=== PATIENT | female | born 1935 | race Caucasian/White ===

== ENCOUNTER 2018-09-20 05:10 | Inpatient (IN) ==
[2018-09-13 15:52] LABS: Appearance,Urine CLEAR; Bacteria,Urine 0 /hpf (0); Bilirubin,Urine NEG (NEG); Color,Urine YELLOW; Glucose,Urine (UA) NEGATIVE (NEG); Leukocyte Esterase,Urine 250 /uL (NEG); Mucus,Urine FEW /hpf (0); Protein,Urine NEG (NEG); Specific Gravity,Urine 1.027 (1.000-1.035); Urine Blood NEG mg/dL (<0.03); Urine RBC 2 /hpf (0-1); Urine Squamous Epithelial Cell 2 /hpf (0-4); Urine Transitional Epi Cells 1 /hpf (0-2); Urine WBC 28 /hpf (0-4); Urobilinogen,Urine NEG (NEG)
[2018-09-13 17:01] LABS: Blood Urea Nitrogen 16 mg/dl (8-23)
[2018-09-13 17:22] LABS: Basophils # (Auto) 0 K/mcL (0.0-0.3); Basophils % (Auto) 0.6 % (0.0-2.0); Eosinophils # (Auto) 0.4 K/mcL (0.0-0.7); Eosinophils % (Auto) 4.3 % (0.0-7.0); Granulocytes % (Auto) 62.4 % (38.0-78.0); Lymphocytes # (Auto) 1.9 K/mcL (1.5-4.8); Lymphocytes % (Auto) 22.6 % (15.5-49.0); Mean Corpuscular HGB Conc 33.3 g/dL (31.0-36.0); Mean Corpuscular Hemoglobin 31.6 pg (26.0-34.0); Monocytes # (Auto) 0.8 K/mcL (0.1-0.9); Monocytes % (Auto) 10.1 % (1.0-12.0); Platelet Count 154 K/mcL (140-440); RBC 4.69 M/mcL (4.00-5.20); Red Cell Distribution Width 13.1 % (11.5-14.5)
[2018-09-20] MEDS ORDERED: ACETAMINOPHEN 500 MG TABLET PO SCH (07:00)
[2018-09-20] MEDS ORDERED: CELECOXIB 200 MG CAPSULE PO SCH (07:00)
[2018-09-20] MEDS ORDERED: PREGABALIN 75 MG CAPSULE PO SCH (07:00)
[2018-09-20] MEDS ORDERED: 0.9 % SODIUM CHLORIDE 9 ML, KETOROLAC 30 MG, ROPIVACAINE HCL/PF 49.5 ML, EPINEPHrine 0.... IJ SCH (07:00)
[2018-09-20] MEDS ORDERED: CLINDAMYCIN 900 MG in DEXTROSE 5% IN WATER 50 ML IV SCH (07:00)
[2018-09-20] MEDS ORDERED: GENTAMICIN SULFATE 800 MG/20 ML VIAL IR ONE (07:06)
[2018-09-20] MEDS ORDERED: GLYCOPYRROLATE 0.2 MG/ML VIAL IV ONE (07:45)
[2018-09-20] MEDS ORDERED: LIDOCAINE HCL/PF 100 MG/5 ML SYRINGE IV ONE (07:45)
[2018-09-20] MEDS ORDERED: PHENYLEPHRINE 10 MG/ML VIAL IV ONE (07:45)
[2018-09-20] MEDS ORDERED: DEXAMETHASONE 10 MG/ML VIAL IV ONE (07:45)
[2018-09-20] MEDS ORDERED: MIDAZOLAM 2 MG/2 ML VIAL IV ONE (07:45)
[2018-09-20] MEDS ORDERED: fentaNYL 100 MCG/2 ML VIAL IV ONE (07:45)
[2018-09-20] MEDS ORDERED: ONDANSETRON 4 MG/2 ML VIAL IV ONE (07:45)
[2018-09-20] MEDS ORDERED: PROPOFOL 200 MG/20 ML VIAL IV ONE (07:45)
[2018-09-20] MEDS ORDERED: TRANEXAMIC ACID 1,000 MG/10 ML VIAL IV ONE (07:45)
[2018-09-20] MEDS ORDERED: KETAMINE 100 MG/ML ML IV ONE (07:45)
[2018-09-20] MEDS ORDERED: METHOCARBAMOL 1,000 MG/10 ML VIAL IV PRN (08:00)
[2018-09-20] MEDS ORDERED: IPRATROPIUM/ALBUTEROL 3 ML AMPUL.NEB NEB PRN (08:00)
[2018-09-20] MEDS ORDERED: BENZOCAINE/MENTHOL 1 LOZENGE PO PRN (08:00)
[2018-09-20] MEDS ORDERED: NALOXONE HCL 0.4 MG/ML VIAL IV PRN (08:00)
[2018-09-20] MEDS ORDERED: LACTATED RINGERS 250 ML IV PRN (08:00)
[2018-09-20] MEDS ORDERED: fentaNYL 100 MCG/2 ML VIAL IV PRN (08:00)
[2018-09-20] MEDS ORDERED: MEPERIDINE 25 MG/ML SYRINGE IV PRN (08:00)
[2018-09-20] MEDS ORDERED: FLUMAZENIL 0.1 MG/ML ML IV PRN (08:00)
[2018-09-20] MEDS ORDERED: LACTATED RINGERS 1,000 ML IV SCH (08:00)
[2018-09-20] MEDS ORDERED: ACETAMINOPHEN 1,000 MG/100 ML BOTTLE IV ONE (08:00)
[2018-09-20] MEDS ORDERED: ONDANSETRON 4 MG/2 ML VIAL IV PRN ×2 (08:00→09:06)
[2018-09-20] MEDS ORDERED: HYDROcodone/APAP 10/325MG TABLET PO PRN (09:06)
[2018-09-20] MEDS ORDERED: KETOROLAC 15 MG/ML VIAL IV PRN (09:06)
[2018-09-20] MEDS ORDERED: POLYETHYLENE GLYCOL 3350 17 GM PACKET PO PRN (09:06)
[2018-09-20] MEDS ORDERED: BISACODYL 10 MG SUPP.RECT PR PRN (09:06)
[2018-09-20] MEDS ORDERED: FLEETS ADULT ENEMA PR PRN (09:06)
[2018-09-20] MEDS ORDERED: TRANEXAMIC ACID 1,000 MG/10 ML VIAL IV SCH (09:06)
[2018-09-20] MEDS ORDERED: HYDROmorphone 2 MG/ML VIAL IV PRN (09:06)
[2018-09-20] MEDS ORDERED: MAGNESIUM HYDROXIDE 30 ML ORAL.SUSP PO PRN (09:06)
[2018-09-20] MEDS ORDERED: ceFAZolin 1 GM VIAL IV SCH (09:15)
--- NOTE | 2018-09-20 10:15 | XRay Report ---
CLINICAL INFORMATION: Post-Op Total Hip COMPARISON: None. FINDINGS: Left total hip prostheses is in near-anatomic alignment. No osseous abnormalities. Periarticular soft tissue swelling over the surgical site as expected. IMPRESSION: Negative Interpreted and Authenticated by: Baron Robles 09/20/18
--- NOTE | 2018-09-20 10:36 | XRay Report ---
CLINICAL INFORMATION: left total hip COMPARISON: None. FINDINGS: Intraoperative film shows prostatic femoral neck template in anatomic position. Acetabular prosthesis also anatomic position. No osseous abnormality. IMPRESSION: Intraoperative films - as described Interpreted and Authenticated by: Baron Robles 09/20/18
--- NOTE | 2018-09-20 11:33 | Operative Note ---
DATE OF OPERATION: 09/20/2018 PREOPERATIVE DIAGNOSIS: Left hip degenerative arthritis. POSTOPERATIVE DIAGNOSIS: Left hip degenerative arthritis. PROCEDURE: Left total hip arthroplasty. SURGEON: Mandeep Art MD STAFF DEVELOPER: Clay De Jesus PA-C ANESTHESIA: General LMA anesthesia. ESTIMATED BLOOD LOSS: About 150 mL IMPLANTS: A size 6 cemented stem with a +2.5 ceramic head, a 52 mm cup with a 36 mm compression screw. COMPLICATIONS: None. DESCRIPTION OF PROCEDURE: The patient was brought in to the operating room and put to sleep with general LMA anesthesia in a supine position, turned into a right lateral position and then the hip was sterilely prepped and draped. We then made a superior approach to the hip through the [place] after confirming the operative site, and preoperative antibiotics and tranexamic acid had been given. We then made the incision, dissected down through the fatty layer, identified the fascial layer which was incised through the muscle fibers. We then dislocated the hip and released the capsule. We made our neck cut at 30 mm below the center of hip rotation with the reciprocating saw, subluxed the hip anteriorly and then reamed up to the size of 52, implanted a 52 cup in 20 degrees of anteversion, 40 degrees of inclination as well as placing 1 screw 36 mm long. Once this was done, we then placed a non-hooded liner, which was tapped into place highly cross-linked polyethylene. We broached up on the femur. Because the bone quality was cemented into place a size 6 stem. The size 6 stem was positioned after a template had been performed. We trialed the size 6 stem with a neutral neck length. This seemed to match equal leg lengths, noting that the stem had not been fully seated. We then cemented into place the stem after preparing the bony surface and injecting cement. This was compressed with a 6 stem, 11 mm distal centralizer. We then tapped this into place down to the bony calcar region, placed a 2.5 neck length because of the shortening from the original template. We irrigated thoroughly and removed any excess cement. Once the bone was hardened we placed this 2.5 plus neck length on the ceramic 36 mm head. This was reduced and was very stable up to 90 degrees in both direction. We irrigated thoroughly and closed the fascial layer with #1 Stratafix. We closed the capsular layer with #1 Ethibond and skin was closed with #1 Stratafix and adhesive closure. The patient tolerated this well without complication. RB[facility]:esperanza Job ID: [id number] Doc ID: [id number] Mandeep Art MD
[2018-09-20] MEDS: 0.45 % SODIUM CHLORIDE 1,000 ML IV SCH ×2 (11:40→20:08)
[2018-09-20] MEDS: BENZOCAINE/MENTHOL 1 LOZENGE PO PRN ×2 (11:40→22:51)
[2018-09-20] MEDS ORDERED: oxyCODONE HCL 5 MG TABLET PO PRN (12:23)
[2018-09-20] MEDS: 0.9 % SODIUM CHLORIDE 10 ML SYRINGE IV SCH ×2 (13:17→20:15)
[2018-09-20] MEDS: CLINDAMYCIN 900 MG in DEXTROSE 5% IN WATER 50 ML IV SCH ×2 (15:49→22:46)
[2018-09-20] MEDS: DOCUSATE SODIUM 100 MG CAPSULE PO SCH (20:13)
[2018-09-20] MEDS: ASPIRIN 325 MG ENTERIC COATED TABLET PO SCH (20:13)
[2018-09-20] MEDS: ACETAMINOPHEN 325 MG TABLET PO PRN (20:59)
[2018-09-20] MEDS ORDERED: TEMAZEPAM 15 MG CAPSULE PO PRN (21:00)
[2018-09-20] MEDS ORDERED: SENNOSIDES 1 TABLET PO SCH (21:00)
[2018-09-21] MEDS: BENZOCAINE/MENTHOL 1 LOZENGE PO PRN (02:34)
[2018-09-21] MEDS: 0.9 % SODIUM CHLORIDE 10 ML SYRINGE IV SCH (05:47)
--- NOTE | 2018-09-21 07:37 | Orthopedic Progress Note ---
Subjective Patient information: Note initiated : 09/21/18 at 7:35 am Service Date, if different from initiated Date: [] Patient: Beronica Carrasco 83 y/o F admitted on 09/20/18 for Left Total Hip Arthroplasty. Chief Complaint: [Pt is stable this morning on post operative day 1 without any significant concerns or complaints. Patients vital signs have remained stable. Patients dressing is dry and is grossly intact from a neurovascular and motor standpoint. Patients 10 point ROS is otherwise negative. ] Objective Vital signs: Vital Signs Temp Pulse Resp BP Pulse Ox 09/21/18 06:55 96.8 F L 61 14 102/55 93 09/21/18 05:46 96 09/21/18 03:10 97.3 F 65 22 111/56 94 09/21/18 03:09 94 09/21/18 02:35 93 09/21/18 00:00 98.1 F 67 22 103/49 93 09/20/18 22:54 93 09/20/18 21:00 91 09/20/18 20:00 98.6 F 76 24 H 107/58 92 09/20/18 19:49 95 09/20/18 17:35 93 09/20/18 15:53 98.3 F 18 116/64 92 09/20/18 15:44 92 09/20/18 14:24 97.4 F 68 20 117/59 95 09/20/18 13:20 90 104/46 94 09/20/18 12:37 90/48 92 09/20/18 11:43 95 09/20/18 11:41 95/48 92 09/20/18 11:25 94/34 94 09/20/18 10:02 98.4 F 84 20 94/48 97 09/20/18 09:47 77 13 85/52 100 09/20/18 09:32 98.3 F 73 15 94/48 97 09/20/18 09:27 73 12 104/52 97 09/20/18 09:22 75 13 110/60 98 09/20/18 09:17 97.6 F 84 14 99/57 95 Intake and Output 09/20/18 09/21/18 09/21/18 21:59 05:59 13:59 Intake Total 1323 / 1323 1806 / 1806 Output Total 1225 / 1225 1150 / 1150 Balance 98 / 98 656 / 656 Intake: IV 903 / 903 1056 / 1056 Sodium Chloride 0.45% 1,000 ml 847 / 847 1000 / 1000 @ 100 mls/hr IV .Q10H [facility] Rx#: [id number] Cleocin 900 mg In Dextrose 5% 56 / 56 56 / 56 in Water 50 ml @ 100 mls/hr IV Q8H [facility] Rx#:[id number] Oral 420 / 420 750 / 750 Output: Void Amount 1225 / 1225 1150 / 1150 Other: Urine Appearance Clear Clear Urine Color Pale Pale Urine Odor Normal Normal Weight 178 lb 8 oz Intake & Output: Intake & Output 09/20/18 09/21/18 09/21/18 21:59 05:59 13:59 Intake Total 1323 / 1323 1806 / 1806 Output Total 1225 / 1225 1150 / 1150 Balance 98 / 98 656 / 656 Weight 178 lb 8 oz Intake: IV 903 / 903 1056 / 1056 Sodium Chloride 0.45% 1,000 ml 847 / 847 1000 / 1000 @ 100 mls/hr IV .Q10H [facility] Rx#: [id number] Cleocin 900 mg In Dextrose 5% 56 / 56 56 / 56 in Water 50 ml @ 100 mls/hr IV Q8H [facility] Rx#:[id number] Oral 420 / 420 750 / 750 Output: Void Amount 1225 / 1225 1150 / 1150 Other: Urine Appearance Clear Clear Urine Color Pale Pale Urine Odor Normal Normal Incision: Yes healing Incision clean and dry: Yes Dressing: Yes clean Weight bearing status: full Neurological exam IM: Yes motor sensory intact, Yes neurovascular intact Extremities exam IM: Yes normal inspection, Yes Foot pink and warm, Yes neurovascular intact - Labs CBC & BMP: 09/21/18 05:10 09/13/18 14:39 Labs: Orthopedic Labs 09/13/18 14:40 PT 14.5 INR 1.1 APTT 49 H 09/21/18 09/13/18 05:10 14:40 Hgb 14.8 Hct 33.7 L 44.5 Assessment and Plan (1) Hx of total hip arthroplasty The patient has been educated regarding dressing care, Physical Therapy recommendations, home exercises, restrictions, and follow up appointments. The patient has had all necessary DME prescribed. The patient has remained relatively stable during their hospital course. Leave Dermabond patch intact until followup Status: Acute
--- NOTE | 2018-09-21 07:40 | Discharge Summary ---
Ortho Discharge - [facility] - Patient Instructions Diet: Regular Diet Activity: activity as tolerated, weight bearing as tolerated Total Hip Protocol: Follow activity instructions as provided by Physical Therapy. Dressing Care: May shower in 2 days - Problem Maintenance (1) Hx of total hip arthroplasty Status: Acute - Follow Up Plan Follow Up Appointments: Clay De Jesus PA-C [Physician Rehabilitation Supervisor] - 10/07/18 1:00 pm Disposition: Home, Self-Care Prognosis: Good Rehab Potential: Good I certify that the patient requires SNF services: No Overall status at discharge: patient is progressing back to baseline - Orders For Discharge Prescriptions: Aspirin [Ecotrin] 325 mg PO BID #60 tab.ec Docusate Sodium [Colace] 100 mg PO BID #60 cap oxyCODONE HCL [Roxicodone] 5 mg PO Q4HP PRN #75 tab PRN Reason: Pain Level 3-6
[2018-09-21] MEDS: ASPIRIN 325 MG ENTERIC COATED TABLET PO SCH (08:06)
[2018-09-21] MEDS: DOCUSATE SODIUM 100 MG CAPSULE PO SCH (08:06)
[2018-09-21] MEDS ORDERED: MULTIVIT,THER IRON,CA,FA & MIN 1 TABLET PO SCH (09:00)
[2018-09-21] MEDS: ACETAMINOPHEN 325 MG TABLET PO PRN (09:37)
[2018-09-21] MEDS ORDERED: PNEUMOCOCCAL 23-VAL P-SAC VAC 0.5 ML VIAL IM ONE (10:00)
== END 2018-09-21 12:30 | disposition home or self-care (01) | DRG 470 ==
LOC: MEDSUR 05:10
PROVIDERS: ADMIT Orthopaedic Surgery; ATTEND Orthopaedic Surgery
CPT/HCPCS: 62322; 73501; 73502; 97161; 97166; C1713; C1776; J1100; J1580; J1885; J2001; J2250; J2370; J2405; J3010; J7060; J7120